=== PATIENT | female | born 1935 | race Two or more races ===

== ENCOUNTER → 2017-09-11 | Outpatient (CLI) | payer MEDICARE ==
[~2017-09-11] MED LIST: CYAN10002 IM; EZET10TA18 PO; LEVO100T PO; ROSU40TA PO
[2017-09-11 11:08] LABS: BASOPHILS # (AUTO) 0.03 x10^3/uL (0-0.1); BASOPHILS % (AUTO) 1 % (0-1); EOSINOPHILS # (AUTO) 0.06 x10^3/uL (0-0.4); EOSINOPHILS % (AUTO) 1 % (1-7); LYMPHOCYTES # (AUTO) 1.93 x10^3/uL (1-3.4); LYMPHOCYTES % (AUTO) 44 % (22-44); MD NO; MEAN CORPUSCULAR HEMOGLOBIN 34.3 pg (27.0-34.8); MEAN CORPUSCULAR HGB CONC 34.2 g/dL (32.4-35.8); MEAN CORPUSCULAR VOLUME 100.4 fL (80-100); MEAN PLATELET VOLUME 7.6 fL (7.4-10.4); MONOCYTES # (AUTO) 0.53 x10^3/uL (0.2-0.8); MONOCYTES % (AUTO) 12 % (2-9); NEUTROPHILS # (AUTO) 1.88 x10^3/uL (1.8-6.8); NEUTROPHILS % (AUTO) 43 % (42-75); PLATELET COUNT 142 x10^3/uL (130-400); RED BLOOD COUNT 4.23 x10^6/uL (3.82-5.3); RED CELL DISTRIBUTION WIDTH 12.6 % (9.6-15.2)
[2017-09-11 11:14] LABS: INTERNATIONAL NORMALIZED RATIO 0.98 (0.93-1.1); PROTHROMBIN TIME 10.2 Seconds (9.6-11.5)
[2017-09-11 11:20] LABS: ANION GAP 7 mmol/L (5-15); CALCIUM 8.8 mg/dL (8.5-10.1); CHLORIDE 101 mmol/L (98-107); CREATININE 0.52 mg/dL (0.55-1.02)
[2017-09-11 13:11] LABS: HEMOGLOBIN A1C 5.3 % (4.2-6.3)
== END | disposition home or self-care (01) ==
LOC: STAR 09:59
PROVIDERS: ATTEND Orthopaedic Surgery
DX: Z01.818 Encounter for other preprocedural examination (principal); M17.11 Unilateral primary osteoarthritis, right knee; I49.3 Ventricular premature depolarization; R79.89 Other specified abnormal findings of blood chemistry
CPT/HCPCS: 36415; 80048; 83036; 85025; 85610; 85730; 86703; 87081; 87899; 93005; G0435

== ENCOUNTER 2017-09-21 05:20 | Inpatient (IN) | payer MEDICARE ==
[~2017-09-21] VITALS: Ht 154.9 cm; Wt 57.1 kg
[2017-09-21] MEDS ORDERED: VANCOMYCIN PER PHARMACY MC ONE (05:54)
[2017-09-21] MEDS ORDERED: LACTATED RINGERS 1,000 ML IV SCH (06:22)
[2017-09-21] MEDS ORDERED: LIDOCAINE 1%, 2ML ONE (06:24)
[2017-09-21 06:26] VITALS: BP 149/70
[2017-09-21] MEDS ORDERED: VANCOMYCIN PMX 1GM/200ML 200 ML IV ONE (06:30)
[2017-09-21] MEDS ORDERED: LIDOCAINE 1%, 2ML SQ PRN (06:30)
[2017-09-21] MEDS ORDERED: GABAPENTIN 300 MG CAPSULE PO ONE (06:30)
[2017-09-21] MEDS ORDERED: ACETAMINOPHEN 500 MG TABLET PO ONE (06:30)
[2017-09-21] MEDS ORDERED: LABETALOL 5MG/ML, 20ML IV PRN (07:00)
[2017-09-21] MEDS ORDERED: FENTANYL PF 100 MCG/2ML IV PRN (07:00)
[2017-09-21] MEDS ORDERED: HYDROmorphone 1 MG/ML, 1ML IV PRN ×2 (07:00→07:30)
[2017-09-21] MEDS ORDERED: MEPERIDINE/PF 25MG/0.5ML IVPush PRN (07:00)
[2017-09-21] MEDS ORDERED: hydrALAzine 20 MG/ML, 1ML IV PRN (07:00)
[2017-09-21] MEDS ORDERED: PROMETHAZINE 25 MG/ML, 1ML IV PRN (07:00)
[2017-09-21] MEDS ORDERED: OXYcodone 5 MG/5 ML ORAL.SOL UDC PO PRN (07:00)
[2017-09-21] MEDS ORDERED: ONDANSETRON 2MG/ML, 2ML IVPush PRN (07:00)
[2017-09-21] MEDS ORDERED: ALUMINUM/MAG/SIMETHICONE 30 ML UDC PO PRN (07:30)
[2017-09-21] MEDS ORDERED: SENNA/DOCUSATE TABLET PO PRN (07:30)
[2017-09-21] MEDS ORDERED: ONDANSETRON 2MG/ML, 2ML IV PRN (07:30)
[2017-09-21] MEDS ORDERED: ONDANSETRON 4 MG TABLET PO PRN (07:30)
[2017-09-21] MEDS ORDERED: DIPHENHYDRAMINE 50 MG CAPSULE PO PRN (07:30)
[2017-09-21] MEDS ORDERED: TRANEXAMIC ACID 1,000 MG in SODIUM CHLORIDE 0.9% 100 ML IVPB ONE (07:30)
[2017-09-21] MEDS ORDERED: MAGNESIUM HYDROXIDE 8%, 30ML UDC PO PRN (07:30)
[2017-09-21] MEDS ORDERED: DIAZEPAM 5 MG TABLET PO PRN (07:30)
[2017-09-21] MEDS ORDERED: ROPIvacaine/PF 0.2%, 20 ML ONE (08:03)
[2017-09-21] MEDS ORDERED: ROCURONIUM 10 MG/ML,10ML ONE (08:31)
[2017-09-21] MEDS ORDERED: FENTANYL PF 250 MCG/5ML ONE (08:31)
[2017-09-21] MEDS ORDERED: MIDAZOLAM 1 MG/ML, 2ML ONE (08:31)
[2017-09-21] MEDS ORDERED: CEFAZOLIN 1,000 MG ONE ×2 (08:32)
[2017-09-21] MEDS ORDERED: SODIUM CHLORIDE 0.9% PF 10ML ONE (08:32)
[2017-09-21] MEDS ORDERED: NEOSTIGMINE 1 MG/ML, 10ML ONE (08:33)
[2017-09-21] MEDS ORDERED: GLYCOPYRROLATE 0.4 MG/2 ML, 2ML ONE (08:33)
[2017-09-21] MEDS ORDERED: ONDANSETRON 2MG/ML, 2ML ONE (08:34)
[2017-09-21] MEDS ORDERED: DEXAMETHASONE 4 MG/ML, 1ML ONE ×2 (08:34)
[2017-09-21] MEDS ORDERED: PROPOFOL 10 MG/ML, 20ML ONE (08:35)
[2017-09-21] MEDS ORDERED: PHENYLEPHRINE 10 MG/ML ONE (08:37)
[2017-09-21] MEDS: TAMSULOSIN 0.4 MG CAP.ER.24H PO SCH (09:00)
[2017-09-21] MEDS ORDERED: ACETAMINOPHEN 325 MG TABLET ONE (09:14)
[2017-09-21] MEDS ORDERED: OXYcodone 5 MG/5 ML ORAL.SOL UDC ONE (09:14)
[2017-09-21] MEDS ORDERED: ACETAMINOPHEN 650 MG/20.3 ML UDC ONE (09:14)
[2017-09-21] MEDS: ACETAMINOPHEN 650 MG/20.3 ML UDC PO PRN (09:15)
[2017-09-21] MEDS: OXYcodone IR 5MG TABLET PO PRN ×3 (11:20→20:33)
[2017-09-21 13:05] VITALS: BP 123/59
[2017-09-21] MEDS: DOCUSATE 100 MG CAPSULE PO SCH ×2 (15:30→20:32)
[2017-09-21] MEDS: CEFAZOLIN PMX 1GM/50ML 50 ML IVPB SCH ×2 (15:30→23:10)
[2017-09-21] MEDS: D5%-0.45NACL+KCL 20MEQ 1,000 ML IV SCH (15:32)
[2017-09-21 20:09] VITALS: BP_SYST 129
[2017-09-21] MEDS ORDERED: ATORVASTATIN 80 MG TABLET PO SCH (21:00)
[2017-09-21] MEDS ORDERED: EZETIMIBE 10 MG TABLET PO SCH (21:00)
[2017-09-22 00:10] VITALS: BP 135/48
[2017-09-22] MEDS: OXYcodone IR 5MG TABLET PO PRN ×3 (01:02→09:20)
[2017-09-22 02:39] VITALS: BP 126/58
[2017-09-22] MEDS: D5%-0.45NACL+KCL 20MEQ 1,000 ML IV SCH (03:28)
[2017-09-22] MEDS ORDERED: DEXAMETHASONE 4 MG/ML, 1ML IVPush SCH (06:00)
[2017-09-22] MEDS ORDERED: ASPIRIN 81 MG TABLET EC PO SCH (06:00)
[2017-09-22] MEDS ORDERED: LEVOTHYROXINE 100 MCG TABLET PO SCH (06:00)
[2017-09-22] MEDS ORDERED: KETOROLAC 30 MG/1 ML IV SCH (07:30)
[2017-09-22 07:35] VITALS: BP 148/58
[2017-09-22] MEDS: TAMSULOSIN 0.4 MG CAP.ER.24H PO SCH (09:00)
[2017-09-22] MEDS ORDERED: CYANOCOBALAMIN 1,000 MCG/ML, 1ML IM SCH (09:00)
[2017-09-22] MEDS: DOCUSATE 100 MG CAPSULE PO SCH (09:10)
[2017-09-22] MEDS: ACETAMINOPHEN 650 MG/20.3 ML UDC PO PRN (09:20)
[2017-09-22] MEDS ORDERED: AMOX250S6 PO (10:08)
[2017-09-22] MEDS ORDERED: HYDR473S51 PO (10:08)
[2017-09-22] MEDS ORDERED: DOCU-131 PO (12:21)
[2017-09-22] MEDS ORDERED: DIAZ5TAB PO (12:21)
[2017-09-22] MEDS ORDERED: ASPI-621 PO (12:21)
[2017-09-22] MEDS ORDERED: OXYC5CAP2 PO (12:21)
[2017-09-22] MEDS ORDERED: TRAM50TA2 PO (12:21)
[2017-09-22] MEDS ORDERED: CELE200C PO (12:21)
[2017-09-22] MEDS ORDERED: ONDA4TAB10 PO (12:32)
== END 2017-09-22 12:49 | disposition home or self-care (01) | DRG 470 ==
LOC: OUT 05:20 → ORIP 07:02 → EDSTATUS 09:30 → 4NOR 10:57 → DCLOUNGE 09-22 12:25
PROVIDERS: ADMIT Orthopaedic Surgery; ATTEND Orthopaedic Surgery
PROC: 0SRC069 Replacement of Right Knee Joint with Oxidized Zirconium on Polyethylene Synthetic Substitute, Cemented, Open Approach (ICD-10-PCS; principal; 2017-09-21 09:30)
DX: M17.11 Unilateral primary osteoarthritis, right knee (principal); M81.0 Age-related osteoporosis without current pathological fracture
CPT/HCPCS: 36415; 85014; 85018; C1713; J0171; J0690; J1100; J1885; J2250; J2405; J2704; J2710; J2795; J3010; J3490; C1776; J2370; J3480; J7120